=== PATIENT | male | born 1960 | race African-American/Black ===

== ENCOUNTER 2018-03-01 15:38 | Inpatient (IN) | payer MEDICAID, OTHER ==
[~2018-03-01] VITALS: Ht 188 cm; Wt 90.7 kg
[2018-03-01] MEDS ORDERED: SODIUM CHLORIDE 0.9% 1,000 ML IV ONE (16:00)
[2018-03-01] MEDS ORDERED: SODIUM CHLORIDE 0.9% 1,000 ML IVB ONE (16:40)
[2018-03-01 17:28] LABS: Basophils # (auto) 0 uL; Basophils % (auto) 0.2 % (0.0-2.0); Eosinophils # (auto) 0 uL; Eosinophils % (auto) 0.6 % (0.0-7.0); Hematocrit 39.2 % (41.0-53.0); Hemoglobin 13.1 g/dL (13.5-17.5); Lymphocytes # (auto) 0.5 uL; Mean Corpuscular Hemoglobin 30.7 pg (28.0-32.0); Mean Corpuscular Hgb Conc. 33.3 g/dL (32.0-36.0); Mean Corpuscular Volume 92.2 fL (80.0-100.0); Monocytes # (auto) 0.5 uL; Monocytes % (auto) 10.4 % (0.0-12.0); Neutrophils # (auto) 3.8 uL; Neutrophils % (auto) 78.8 % (37.0-80.0); Nucleated Red Blood Cells % 0.1 %; Platelet Count (auto) 147 10^3/uL (140-450); Red Blood Cells 4.25 10^6/uL (4.5-5.90); Red Cell Distribution Width 14.1 % (11.8-14.3); White Blood Cell 4.8 10^3/uL (4.4-10.8)
[2018-03-01 17:31] LABS: Alcohol, Urine < 3.0 mg/dL (0-5); Amphetamine Screen, Urine NEGATIVE (NEGATIVE); Barbiturate Scree,Urine NEGATIVE (NEGATIVE); Benzodiazephine Screen, Urine NEGATIVE (NEGATIVE); Cannabinoid Screen, Urine NEGATIVE (NEGATIVE); Cocaine Screen, Urine NEGATIVE (NEGATIVE); Opiate Scree,Urine NEGATIVE (NEGATIVE); Phencyclidine Screen, Urine NEGATIVE (NEGATIVE)
[2018-03-01 17:54] LABS: INR 0.99 (0.9-1.15); Partial Thromboplastin Time 25.3 sec (23.78-33.04); Prothrombin Time 10.6 sec (9.27-12.13)
[2018-03-01] MEDS ORDERED: LEVO125T7 PO (17:58)
[2018-03-01] MEDS ORDERED: AML5T PO (17:58)
[2018-03-01] MEDS ORDERED: SOTA80TA57 PO (17:58)
[2018-03-01] MEDS ORDERED: ALPH300T PO (17:58)
[2018-03-01 18:10] LABS: Albumin 3.5 g/dL (3.4-5.0); BUN/Creatinine Ratio 8.6; Calcium 8.4 mg/dL (8.5-10.1)
[2018-03-01] MEDS ORDERED: ACETAMINOPHEN 325 MG TAB PO ONE (18:15)
[2018-03-01 18:23] LABS: Bilirubin, Total 0.2 mg/dL (0.2-1.0); Total Protein 6.8 g/dL (6.4-8.2)
[2018-03-01] MEDS ORDERED: LORazepam 2MG/ML-1ML VIAL ONE (19:35)
[2018-03-01] MEDS ORDERED: LORazepam 2MG/ML-1ML VIAL IV ONE (19:45)
[2018-03-01] MEDS ORDERED: ONDANSETRON HCL 4 MG/2 ML VIAL IV PRN (21:15)
[2018-03-01] MEDS ORDERED: NITROGLYCERIN 0.4 MG SL TAB SL PRN (21:15)
[2018-03-01] MEDS ORDERED: MORPHINE SULF INJ 2 MG/ML SYRINGE 1ML IV PRN (21:15)
[2018-03-01] MEDS ORDERED: LORazepam 2MG/ML-1ML VIAL IV PRN (21:15)
[2018-03-01] MEDS ORDERED: TEMAZEPAM 15 MG CAP PO PRN (21:15)
[2018-03-01] MEDS ORDERED: HYDROcodone-ACET 5/325MG TAB PO PRN (21:15)
[2018-03-01 21:48] LABS: Urine WBC None Seen /hpf (0 - 3)
[2018-03-01] MEDS ORDERED: LEVETIRACETAM INJ 500 MG in D5W 5% 100 ML IV SCH (22:00)
[2018-03-01] MEDS ORDERED: SOTALOL HCL 80 MG TAB PO SCH (22:00)
[2018-03-01] MEDS: FAMOTIDINE 20 MG TAB PO SCH (22:00)
[2018-03-01 22:24] LABS: Urine Bacteria NONE SEEN /hpf (None Seen); Urine Blood Negative /uL (Negative); Urine Specific Gravity 1.007 (1.001-1.035)
[2018-03-01 23:20] VITALS: BP 126/71
[2018-03-02] MEDS ORDERED: LEVETIRACETAM 500 MG TAB PO ONE (00:45)
[2018-03-02] MEDS ORDERED: TRAM50TA2 PO (01:04)
[2018-03-02] MEDS ORDERED: HYDR25TA4 PO (01:04)
[2018-03-02] MEDS: ACETAMINOPHEN 325 MG TAB PO PRN ×2 (04:19→21:14)
[2018-03-02 05:27] VITALS: BP 106/72
[2018-03-02 06:48] LABS: Basophils # (auto) 0 uL; Basophils % (auto) 0.3 % (0.0-2.0); Eosinophils # (auto) 0 uL; Hematocrit 40.1 % (41.0-53.0); Hemoglobin 13.2 g/dL (13.5-17.5); Lymphocytes # (auto) 0.6 uL; Lymphocytes % (auto) 13.4 % (10.0-50.0); Mean Corpuscular Hemoglobin 30.5 pg (28.0-32.0); Mean Corpuscular Volume 92.6 fL (80.0-100.0); Monocytes # (auto) 0.5 uL; Monocytes % (auto) 11.3 % (0.0-12.0); Neutrophils # (auto) 3.5 uL; Nucleated Red Blood Cells % 0.1 %; Platelet Count (auto) 144 10^3/uL (140-450); Red Blood Cells 4.32 10^6/uL (4.5-5.90); Red Cell Distribution Width 14.2 % (11.8-14.3); White Blood Cell 4.8 10^3/uL (4.4-10.8)
[2018-03-02] MEDS ORDERED: LEVOTHYROXINE SODIUM 50 MCG TAB PO SCH (07:00)
[2018-03-02 07:04] LABS: Albumin 3.2 g/dL (3.4-5.0); BUN/Creatinine Ratio 6.5; Bilirubin, Total 0.4 mg/dL (0.2-1.0); Calcium 8.5 mg/dL (8.5-10.1); Total Protein 6.6 g/dL (6.4-8.2)
[2018-03-02 08:53] VITALS: BP 93/55
[2018-03-02] MEDS: FAMOTIDINE 20 MG TAB PO SCH ×2 (09:43→21:13)
[2018-03-02] MEDS ORDERED: LEVETIRACETAM 500 MG TAB PO SCH ×2 (10:00→22:00)
[2018-03-02] MEDS ORDERED: HCTZ 25 MG TAB PO SCH (10:00)
[2018-03-02] MEDS ORDERED: amLODIPine BESYLATE 5 MG TAB PO SCH (10:00)
[2018-03-02] MEDS ORDERED: CARB200T PO (11:21)
[2018-03-02] MEDS ORDERED: DIVA500T53 PO (11:21)
[2018-03-02] MEDS ORDERED: LEVE100012 PO (11:21)
[2018-03-02 13:00] VITALS: BP 133/78
[2018-03-02] MEDS: SODIUM CHLORIDE 0.9% 1,000 ML IV SCH (15:12)
[2018-03-02 16:54] VITALS: BP 100/62
[2018-03-02] MEDS: LEVETIRACETAM 500 MG TAB PO SCH (21:13)
[2018-03-02] MEDS: carBAMazepine 200 MG TAB PO SCH (21:15)
[2018-03-02] MEDS ORDERED: carBAMazepine 200 MG TAB PO SCH (22:00)
[2018-03-02 23:02] VITALS: BP 102/66
[2018-03-03] MEDS: SODIUM CHLORIDE 0.9% 1,000 ML IV SCH (03:55)
[2018-03-03 05:22] VITALS: BP 100/63
[2018-03-03 07:31] LABS: Basophils # (auto) 0 uL; Basophils % (auto) 0.8 % (0.0-2.0); Eosinophils # (auto) 0.2 uL; Eosinophils % (auto) 4.1 % (0.0-7.0); Hematocrit 37.5 % (41.0-53.0); Hemoglobin 12.2 g/dL (13.5-17.5); Lymphocytes # (auto) 1.2 uL; Lymphocytes % (auto) 29.8 % (10.0-50.0); Mean Corpuscular Hemoglobin 30.6 pg (28.0-32.0); Mean Corpuscular Hgb Conc. 32.7 g/dL (32.0-36.0); Mean Corpuscular Volume 93.7 fL (80.0-100.0); Monocytes # (auto) 0.6 uL; Monocytes % (auto) 14.3 % (0.0-12.0); Nucleated Red Blood Cells % 0.1 %; Platelet Count (auto) 136 10^3/uL (140-450); Red Cell Distribution Width 14.2 % (11.8-14.3)
[2018-03-03 07:46] LABS: BUN/Creatinine Ratio 8.7; Calcium 8.4 mg/dL (8.5-10.1); Magnesium 2.5 mg/dL (1.6-2.6); Potassium 4.1 mmol/L (3.5-5.1)
[2018-03-03 09:00] VITALS: BP 90/61
[2018-03-03] MEDS ORDERED: LACTULOSE 20Gm/30ML SOLN PO ONE (09:00)
[2018-03-03] MEDS ORDERED: CARB200T PO (10:00)
[2018-03-03] MEDS ORDERED: LEVE100012 PO (10:00)
[2018-03-03] MEDS ORDERED: DIVA500T53 PO (10:00)
[2018-03-03] MEDS: LEVETIRACETAM 500 MG TAB PO SCH (10:11)
[2018-03-03] MEDS: carBAMazepine 200 MG TAB PO SCH (10:11)
[2018-03-03] MEDS: FAMOTIDINE 20 MG TAB PO SCH (10:11)
[2018-03-03 13:00] VITALS: BP 104/64
[2018-03-03 18:29] VITALS: BP 106/65
== END 2018-03-03 19:40 | disposition home or self-care (01) | DRG 53 ==
LOC: EDBD 15:38 → ER 15:38 → TELE 15:39 → TELE-EAST 23:18
PROVIDERS: ADMIT Nurse Practitioner; ATTEND Internal Medicine
DX: G40.409 Other generalized epilepsy and epileptic syndromes, not intractable, without status epilepticus (principal); I10 Essential (primary) hypertension; D64.9 Anemia, unspecified; F17.200 Nicotine dependence, unspecified, uncomplicated; Z79.899 Other long term (current) drug therapy
CPT/HCPCS: 36415; 70450; 71045; 80048; 80053; 80061; 80156; 80307; 81001; 82542; 82962; 83735; 85025; 85610; 85730; 93005; 94761; 96361; 96374; J7060